=== PATIENT | female | born 1975 | race Caucasian/White ===

== ENCOUNTER 2023-09-22 20:42 | Emergency (ER) | payer SELFPAY ==
[2023-09-22 21:54] LABS: Absolute Basophils 0.1 K/uL (0-0.5); Absolute Eosinophils 0.1 K/uL (0-0.5); Absolute Lymphocytes (CBC) 2.8 K/uL (0.7-4.9); Absolute Monocytes 1.1 K/uL (0.1-1.3); Absolute Neutrophil 4.8 K/uL (1.8-8.0); Basophils % 0.7 % (0-1.3); Hematocrit 45.9 % (36.0-45.0); Lymphocytes % 31.7 % (15.3-44.8); MCH 36.4 pg (27.0-35.0); MCHC 34.8 g/dL (32.0-36.0); MCV 104.7 fL (80-100); MPV 7.8 fL (7.6-11.3); Monocytes % 12.2 % (3.3-12.3); Neutrophils % 54.4 % (41.7-73.7); Nucleated Red Blood Cells % 0.2 % (0-0); Platelets 372 thou/uL (152-406); RBC Red Blood Cell Count 4.39 M/uL (3.86-4.86)
[2023-09-22 21:59] LABS: D-Dimer 0.482 FEUug/mL (0-0.50); PT Prothrombin Time 12.1 SECONDS (9.4-12.5); Protime INR 1.08
[2023-09-22 22:04] LABS: Albumin 2.7 g/dL (3.4-5.0); Albumin/Globulin Ratio 0.6 (1.1-1.8); Anion Gap 12.8 mEq/L (5.0-15.0); Bilirubin Direct 0.2 mg/dL (0-0.2); Bilirubin Indirect, Calculated 0.5 mg/dL (0.2-0.8); Bilirubin Total 0.7 mg/dL (0.2-1.0); Globulin 4.3 g/dL (2.3-3.5); Magnesium 1.6 mg/dL (1.6-2.4); Potassium 2.8 mEq/L (3.5-5.1); Troponin High Sensitivity 4.8 pg/mL (<58.9)
--- NOTE | 2023-09-22 22:08 | RAD REPORT ---
EXAM DESCRIPTION: RAD - Chest Single View - 09/22/2023 9:43 pm CLINICAL HISTORY: CHEST PAIN COMPARISON: No comparisons FINDINGS: Lines: None. Lungs: No evidence of edema or pneumonia. Pleural: No significant pleural effusions or pneumothorax. Cardiac: The heart size is within normal limits. Mediastinum: Within normal limits. Bones: No acute fractures. Other: None IMPRESSION: No acute cardiopulmonary disease.
[2023-09-22] MEDS ORDERED: POTASSIUM CL SA 10 MEQ TAB PO ONE (23:21)
--- NOTE | 2023-09-23 00:28 | EDPHYS ---
Physician Documentation [facility] Name: Valente Trujillo Age: 48 yrs Sex: Female : 1975 Arrival Date: 09/22/2023 Time: 20:42 Bed Treatment Private MD: ED Physician Vicenta Goldberg HPI: 09/21 21:01 This 48 yrs old Female presents to ER via Ambulatory with complaints of chest pain. sp3 21:02 48-year-old female with no past medical history presents to the ED with chief complaint sp3 chest pressure, chest pain and feelings of tachycardia for approximately 1 week. Patient has been taking care of her parents both of whom have had health problems requiring her to travel back and forth from [place] to here multiple times over the last several months. Patient has no prior history of DVT, PE or hypercoagulability. She does not smoke and is not on any oral contraception. She denies drug use, alcohol use or smoking. She denies headache, neck pain, back pain, shortness of breath, abdominal pain, nausea, vomiting, diarrhea, syncope, near syncope, fever, cough, or any other signs or symptoms on ROS at this time.. HUB BANDER: 21:01 LMP N/A - Hysterectomy, Not kl Historical: - Allergies: 20:58 No Known Allergies; kl - PMHx: 20:58 None; kl - PSHx: 20:58 partial hysterectomy; kl - Immunization history:: Adult Immunizations not immunized. - Infectious Disease History:: Denies. ROS: 21:03 Constitutional: Negative for fever, chills, and weight loss, Eyes: Negative for injury, sp3 pain, redness, and discharge, ENT: Negative for injury, pain, and discharge, Neck: Negative for injury, pain, and swelling, Respiratory: Negative for shortness of breath, cough, wheezing, and pleuritic chest pain, Abdomen/GI: Negative for abdominal pain, nausea, vomiting, diarrhea, and constipation, Back: Negative for injury and pain, MS/Extremity: Negative for injury and deformity, Skin: Negative for injury, rash, and discoloration, Neuro: Negative for headache, weakness, numbness, tingling, and seizure, Psych: Negative for depression, anxiety, suicide ideation, homicidal ideation, and hallucinations, Allergy/Immunology: Negative for hives, rash, and allergies, Endocrine: Negative for neck swelling, polydipsia, polyuria, polyphagia, and marked weight changes, Hematologic/Lymphatic: Negative for swollen nodes, abnormal bleeding, and unusual bruising, 21:03 All other systems are negative, Exam: 21:03 Constitutional: This is a well developed, well nourished patient who is awake, alert, sp3 and in no acute distress. Head/Face: Normocephalic, atraumatic. Eyes: Pupils equal round and reactive to light, extra-ocular motions intact. Lids and lashes normal. Conjunctiva and sclera are non-icteric and not injected. Cornea within normal limits. Periorbital areas with no swelling, redness, or edema. Neck: Trachea midline, no thyromegaly or masses palpated, and no cervical lymphadenopathy. Supple, full range of motion without nuchal rigidity, or vertebral point tenderness. No Meningismus. Chest/axilla: Normal chest wall appearance and motion. Nontender with no deformity. No lesions are appreciated. Respiratory: Lungs have equal breath sounds bilaterally, clear to auscultation and percussion. No rales, rhonchi or wheezes noted. No increased work of breathing, no retractions or nasal flaring. Abdomen/GI: Soft, non-tender, with normal bowel sounds. No distension or tympany. No guarding or rebound. No evidence of tenderness throughout. Back: No spinal tenderness. No costovertebral tenderness. Full range of motion. Skin: Warm, dry with normal turgor. Normal color with no rashes, no lesions, and no evidence of cellulitis. MS/ Extremity: Pulses equal, no cyanosis. Neurovascular intact. Full, normal range of motion. Neuro: Awake and alert, GCS 15, oriented to person, place, time, and situation. Cranial nerves II-XII grossly intact. Motor strength 5/5 in all extremities. Sensory grossly intact. Cerebellar exam normal. Normal gait. Psych: Awake, alert, with orientation to person, place and time. Behavior, mood, and affect are within normal limits. 21:03 Cardiovascular: Rate: tachycardic, 21:03 ECG was reviewed by the Attending Physician. EKG demonstrates sinus tachycardia at 110 bpm with normal intervals, normal QRS, normal axis, nonspecific diffuse ST's ST changes without evidence of acute ischemia. Vital Signs: 20:56 BP 129 / 98; Pulse 109; Resp 18; Temp 98.4(O); Height 5 ft. 10 in. ; Pain 7/10; kl 21:56 BP 120 / 86; Pulse 87; Resp 16; kl 23:20 BP 124 / 74; Pulse 96; Resp 16; Pulse Ox 93% on R/A; jb4 20:56 Pain Scale: Adult kl MDM: 20:52 Patient medically screened. sp3 21:04 Data reviewed: vital signs, nurses notes, lab test result(s), EKG, radiologic studies. sp3 ED course: 48-year-old female with no past medical history now with chest pain including travel history and tachycardia. Differential diagnosis includes acute coronary syndrome, pulmonary embolism, pleuritic chest pain, musculoskeletal chest pain, GERD, arrhythmia, among others. I am not highly suspicious for sepsis, shock, pneumonia, viral illness, or any other critical pathology at this time. Workup will include EKG which just demonstrates tachycardia, CT chest PE protocol and general laboratory values. Patient does not complain of any pain per se currently but does state that she has mild heaviness which again has been her baseline over the last 10 days.. 09/22 00:26 ED course: CT scan demonstrates no significant findings. Laboratory values also within sp3 normal limits with mild anemia. We will safely discharge patient home at this time.. 09/21 20:52 Order name: Basic Metabolic Panel; Complete Time: 22:06 3 09/21 20:52 Order name: CBC with Diff; Complete Time: 22:06 3 09/21 20:52 Order name: LFT's; Complete Time: 22:06 sp3 09/21 20:52 Order name: Magnesium; Complete Time: 22:06 sp3 09/21 20:52 Order name: NT PRO-BNP; Complete Time: 22:06 sp3 09/21 20:52 Order name: PT-INR; Complete Time: 22:06 sp3 09/21 20:52 Order name: Troponin HS; Complete Time: 22:06 sp3 09/21 21:54 Order name: D-Dimer; Complete Time: 22:06 EDMS 09/21 20:52 Order name: XRAY Chest (1 view); Complete Time: 23:15 3 09/21 21:01 Order name: CT Chest For PE Angio 3 09/21 20:52 Order name: EKG; Complete Time: 20:53 sp3 09/21 20:52 Order name: Cardiac monitoring; Complete Time: 23:19 sp3 09/21 20:52 Order name: EKG - Nurse/Tech; Complete Time: 21:31 sp3 09/21 20:52 Order name: IV Saline Lock; Complete Time: 21:57 sp3 09/21 20:52 Order name: Labs collected and sent; Complete Time: 21:57 sp3 09/21 20:52 Order name: O2 Per Protocol; Complete Time: 21:57 sp3 09/21 20:52 Order name: O2 Sat Monitoring; Complete Time: 21:57 sp3 Administered Medications: 09/21 23:24 Drug: Potassium Chloride PO 40 mEq PO once Route: PO; jb4 Disposition Summary: 09/23/23 00:27 Discharge Ordered Notes: Location: Home sp3 Condition: Stable sp3 Diagnosis - Chest pain, unspecified sp3 Followup: sp3 - With: Private Physician - When: Upon discharge from the Emergency Department - Reason: Continuance of care Discharge Instructions: - Discharge Summary Sheet sp3 - Nonspecific Chest Pain, Adult sp3 Forms: - Medication Reconciliation Form sp3 - Antibiotic Education sp3 - Prescription Opioid Use sp3 - Patient Portal Instructions sp3 - Leadership Thank You Letter sp3 Signatures: Dispatcher [employer] Socorro Ackerman, RN RN Aaron Simms RN RN jb4 Vicenta Goldberg MD MD sp3 Corrections: (The following items were deleted from the chart) 21:54 21:01 D-DIMER+[id number] ordered. SARAH SMITH
--- NOTE | 2023-09-23 00:28 | ER ---
Nurse's Notes [facility] Name: Valente Trujillo Age: 48 yrs Sex: Female : 1975 Arrival Date: 09/22/2023 Time: 20:42 Bed Treatment Private MD: Diagnosis: Chest pain, unspecified Presentation: 09/21 20:56 Chief complaint: Patient states: chest pain off and on x 1 week reports under stress kl due to family illness periods of SOB pt reports anxiety at times. Coronavirus screen: Vaccine status: Patient reports being unvaccinated. Ebola Screen: Patient negative for fever greater than or equal to 101.5 degrees Fahrenheit, and additional compatible Ebola Virus Disease symptoms. Initial Sepsis Screen: Does the patient meet any 2 criteria? No. Patient's initial sepsis screen is negative. Does the patient have a suspected source of infection? No. Patient's initial sepsis screen is negative. Risk Assessment: Do you want to hurt yourself or someone else? Patient reports no desire to harm self or others. Onset of symptoms was September 16, 2023. 20:56 Method Of Arrival: Ambulatory 20:56 Acuity: BANDAR 3 kl Triage Assessment: 20:58 General: Appears well groomed, well developed, Behavior is cooperative, anxious. Pain: Complains of pain in anterior aspect of left upper chest Pain radiates to left arm Pain currently is 7 out of 10 on a pain scale. Quality of pain is described as aching. EENT: No deficits noted. No signs and/or symptoms were reported regarding the EENT system. Neuro: No deficits noted. Cardiovascular: Reports chest pain, shortness of breath, Denies diaphoresis, lightheadedness, nausea, palpitations, syncope, vomiting. Respiratory: No deficits noted. Airway is patent Trachea midline Respiratory effort is even, unlabored, Respiratory pattern is regular, symmetrical. GI: No deficits noted. No signs and/or symptoms were reported involving the gastrointestinal system. : No deficits noted. No signs and/or symptoms were reported regarding the genitourinary system. Derm: No deficits noted. No signs and/or symptoms reported regarding the dermatologic system. Musculoskeletal: No deficits noted. No signs and/or symptoms reported regarding the musculoskeletal system. MANAGER TECHNICAL SUPPORT: 21:01 LMP N/A - Hysterectomy, Not kl Historical: - Allergies: 20:58 No Known Allergies; kl - PMHx: 20:58 None; kl - PSHx: 20:58 partial hysterectomy; kl - Immunization history:: Adult Immunizations not immunized. - Infectious Disease History:: Denies. Screenin:00 [facility] ED Fall Risk Assessment (Adult) History of falling in the last 3 months, kl including since admission No falls in past 3 months (0 pts) Confusion or Disorientation No (0 pts) Intoxicated or Sedated No (0 pts) Impaired Gait No (0 pts) Mobility Assist Device Used No (0 pt) Altered Elimination No (0 pt) Score/Fall Risk Level 0 - 2 = Low Risk Oriented to surroundings, Maintained a safe environment. Abuse screen: Denies threats or abuse. Nutritional screening: No deficits noted. Tuberculosis screening: No symptoms or risk factors identified. Assessment: 21:00 Reassessment: see triage. kl 21:26 Reassessment: Patient appears in no apparent distress at this time. Patient is alert, kl oriented x 3, equal unlabored respirations, skin warm/dry/pink. Patient denies pain at this time. Patient states feeling better. Patient states symptoms have improved. 21:56 Reassessment: Patient denies pain at this time. Patient states feeling better. kl 23:20 Reassessment: Patient appears in no apparent distress at this time. Patient and/or jb4 family updated on plan of care and expected duration. Pain level reassessed. Patient is alert, oriented x 3, equal unlabored respirations, skin warm/dry/pink. Patient denies pain at this time. Patient states feeling better. Vital Signs: 20:56 BP 129 / 98; Pulse 109; Resp 18; Temp 98.4(O); Height 5 ft. 10 in. ; Pain 7/10; kl 21:56 BP 120 / 86; Pulse 87; Resp 16; kl 23:20 BP 124 / 74; Pulse 96; Resp 16; Pulse Ox 93% on R/A; jb4 20:56 Pain Scale: Adult ED Course: 20:48 Patient arrived in ED. jb4 20:52 Vicenta Goldberg MD is Attending Physician. sp3 20:56 EKG completed in triage. Results shown to MD. kl 20:58 Triage completed. kl 21:24 No provider procedures requiring assistance completed. Inserted saline lock: 20 gauge kl in left forearm, using aseptic technique. Blood collected. Flushed with 10 mL NS. 21:45 XRAY Chest (1 view) In Process Unspecified. EDMS 22:55 CT Chest For PE Angio In Process Unspecified. EDMS 23:19 Aaron Jauregui, RN is Primary Nurse. jb4 09/22 00:43 Patient has correct armband on for positive identification. Bed in low position. Call jb4 light in reach. Side rails up X 1. Provided Education on: discharge instructions. 00:43 IV discontinued, intact, bleeding controlled, No redness/swelling at site. Pressure jb4 dressing applied. Administered Medications: 09/21 23:24 Drug: Potassium Chloride PO 40 mEq PO once Route: PO; jb4 Medication: 21:24 VIS not applicable for this client. Outcome: 09/22 00:27 Discharge ordered by . sp3 00:43 Discharged to home ambulatory, jb4 00:43 Condition: stable 00:43 Discharge instructions given to patient, Instructed on discharge instructions, follow up and referral plans. Demonstrated understanding of instructions, follow-up care, 00:52 Patient left the ED. jb4 Signatures: Dispatcher [employer] Socorro Ackerman RN RN kl Bryson, James, RN RN jb4 Vicenta Goldberg MD MD sp3
[2023-09-23 02:18] VITALS: TEMP 98.4
[2023-09-23 02:29] VITALS: O2SAT 93
[2023-09-23 02:30] VITALS: BP 120/86
--- NOTE | 2023-09-23 13:06 | EKG ---
Test Date: 2023-09-22 Test Time: 20:49:56 Virtual Recruiter: KELSIE MEASUREMENT RESULTS: Intervals: Rate: 110 MT: 136 QRSD: 82 QT: 324 QTc: 438 Claude: P: 88 MT: 136 QRS: 64 T: 120 INTERPRETIVE STATEMENTS: Sinus tachycardia Otherwise normal ECG No previous ECG available for comparison Electronically Signed On 09-23-23 13:04:59 CDT by Greg Blcak
--- NOTE | 2023-09-23 18:23 | RAD REPORT ---
EXAM DESCRIPTION: CT - Chest For Pe Angio - 09/22/2023 10:53 pm CLINICAL HISTORY: Travel, chest pain, tach;Chest pain COMPARISON: None. TECHNIQUE: CT CHEST ANGIOGRAPHY WITH IV CONTRAST on 09/22/2023 9:01 PM CDT. MIPS reconstructions were generated. This exam was performed according to our departmental dose-optimization program, which includes autom ated exposure control, adjustment of the mA and/or kV according to patient size and/or use of iterati ve reconstruction technique. MIP images were generated. FINDINGS: Thoracic aorta is normal in course and caliber without aneurysm or dissection. Pulmonary a rteries are poorly opacified. Presence or absence of pulmonary emboli cannot be established. The heart is normal in size. There is no pericardial effusion. Intrathoracic lymph nodes are not enla rged. There is no pleural effusion, pleural thickening or pneumothorax. Central airways are patent. There i s a small calcified medial left upper lobe granuloma. There is a small hiatal hernia. There are no acute osseous findings. No suspicious bony lesions. IMPRESSION: No aortic dissection or aneurysm. No pneumonia. Nondiagnostic study for pulmonary emboli. Electronically signed by: Heber Duran MD 09/23/2023 12:19 AM CDT RP Due to temporary technical issues with the PACS/Fluency reporting system, reports are being signed by the in house radiologists without review as a courtesy to insure prompt reporting. The interpreting radiologist is fully responsible for the content of the report.
== END 2023-09-23 00:52 | disposition home or self-care (01) ==
LOC: ER 20:42
DX: R07.9 Chest pain, unspecified (principal)
CPT/HCPCS: 36415; 71045; 71275; 80048; 80076; 83735; 83880; 84484; 85025; 85379; 85610; 93005; 99284; Q9967